=== PATIENT | male | born 1955 | race Hispanic/Latino ===

== ENCOUNTER 2020-12-03 09:23 | Emergency (ER) | payer MEDICARE ==
--- OUTSIDE RECORDS SUMMARY | 2020-12-03 09:25 | XMS REPORT | Continuity of Care Document ---
:1955 Author Organization [facility] t Address [address] [place] [address] Care Team Providers Name Role Phone TAWANNA CABRAL M.D. Attending Clinician Unavailable Problems Condition Condition Condition Status Onset Resolution Last Treating Co mments Source Name Details Category Date Date Treatment Clinician Date Crushing Crushing Problem Active Unive rs injury of injury of ity of left left [place] middle middle Physici finger finger ans Allergies, Adverse Reactions, Alerts Allergy Allergy Status Severity Reaction(s) Onset Inactive Treating Comm ents Source Name Type Date Date Clinician Penicill drug Active [facility] ins allergy ity of [place] Phys[facility] ans Medications Ordered Filled Start Stop Current Ordering Indication Dosage Frequency Signature Comments Components Source Medication Medication Date Date Medication? Clinician (SIG) Name Name Lisinopril Lisinopril Yes [facility] vers TABS TABS [facility] [place] [facility] ans Procedures This patient has no known procedures. Encounters Start End Encounter Admission Attending Care Care Encounter Source Date/Time Date/Time Type Type Clinicians Facility Department ID 2019-01-29 2019-01-29 [facility] [id number] [facility] 11:30:00 11:30:00 t; TAWANNA CABRAL M.D. i Emir M.D. [place] [facility] ans 2019-01-27 2019-01-27 [facility] [id number] Univers 08:30:00 08:30:00 t; TAWANNA CABRAL M.D. i Emir M.D. [place] [facility] ans Results Test Description Test Time Test Comments Results Result Sourc e Comments [U] XRAY 2019-01-29 Images [facility] FINGER(S) - 2 VWS 10:56:00 acquired[place] MIN. LEFT [id number] reported on Physicia ns this accession number.
[2020-12-03] MEDS ORDERED: BUPIVACAINE 0.5% PF 10 ML VIAL ONE (09:54)
[2020-12-03] MEDS ORDERED: CLINDAMYCIN IV 150 MG/ML (4 mL) VIAL ONE (10:08)
--- NOTE | 2020-12-03 10:08 | ER ---
Nurse's Notes [facility] Name: Chance Cooper Age: 65 yrs Sex: Male : 1955 Arrival Date: 12/03/2020 Time: 09:26 Bed 5 Private MD: Diagnosis: Cellulitis of right finger Presentation: 12/03 09:47 Chief complaint: Patient states: burned his right index finger while BBQing 2 weeks ago iw , having a lot of pain. Coronavirus screen: At this time, the client does not indicate any symptoms associated with coronavirus-19. Ebola Screen: Patient negative for fever greater than or equal to 101.5 degrees Fahrenheit, and additional compatible Ebola Virus Disease symptoms Patient denies exposure to infectious person. Patient denies travel to an Ebola-affected area in the 21 days before illness onset. No symptoms or risks identified at this time. Initial Sepsis Screen: Does the patient meet any 2 criteria? No. Patient's initial sepsis screen is negative. Does the patient have a suspected source of infection? No. Patient's initial sepsis screen is negative. Risk Assessment: Do you want to hurt yourself or someone else? Patient reports no desire to harm self or others. Onset of symptoms was November 18, 2020. 09:47 Method Of Arrival: Ambulatory iw 09:47 Acuity: MIGUEL 3 iw Historical: - Allergies: 09:51 PENICILLINS; iw - Home Meds: 09:51 None [Active]; iw - PMHx: 09:51 Hypertension; iw - PSHx: 09:51 finger; iw - Immunization history:: Adult Immunizations not up to date. - Social history:: Smoking status: . Screenin:00 Abuse screen: Denies threats or abuse. Denies injuries from another. Nutritional jl7 screening: No deficits noted. Tuberculosis screening: No symptoms or risk factors identified. Fall Risk None identified. Vital Signs: 09:47 BP 168 / 77; Pulse 73; Resp 16; Temp 98.2; Pulse Ox 99% on R/A; iw ED Course: Patient arrived in ED. ag5 09:32 Ruiz Rizo PA is PHCP. jmm 09:32 Oni Barahona MD is Attending Physician. jm 09:34 Ash Mayorga, LUZ MARIA is Primary Nurse. bp 09:51 Triage completed. iw 09:52 Arm band placed on. iw 10:00 Patient has correct armband on for positive identification. Bed in low position. Call jl7 light in reach. Side rails up X 1. 10:06 Librado Martinez MD is Referral Physician. [facility] 10:17 No provider procedures requiring assistance completed. Patient did not have IV access jl7 during this emergency room visit. Administered Medications: 09:55 Drug: Clindamycin 600 mg Route: IM; Site: left gluteus; bp 10:05 Follow up: Response: No adverse reaction bp 10:00 Drug: Bactrim (160 mg-800 mg (DS) 1 tablet Route: PO; bp 10:05 Follow up: Response: No adverse reaction bp 10:00 CANCELLED (Patient Refused): morphine 4 mg IM once; RASS on ADMIN: Combtv4, Very jmm Agttd3, Agttd2, Rstlss1, AlertClm0, Drwsy-1, Lt Sdtn-2, Mod Sdtn-3, Dp Sdtn-4, UnArsble-5 10:00 Drug: [place] 10 mg-325 mg 1 tabs Route: PO; bp 10:05 Follow up: Response: No adverse reaction; Pain is decreased bp 10:04 Not Given (Patient Refused): Zofran (Ondansetron) 4 mg PO once bp Outcome: 10:07 Discharge ordered by . [facility] 10:17 Discharged to home ambulatory. jl7 10:17 Condition: stable 10:17 Discharge instructions given to patient, Instructed on discharge instructions, follow up and referral plans. medication usage, Demonstrated understanding of instructions, follow-up care, medications, Prescriptions given X 3. 10:17 Patient left the ED. jl7 Signatures: Ruiz Rizo PA PA Isabel Holland, RN RN iw Agapito Lewis RN RN jl7 Ash Mayorga, RN RN Jasson Reid ag5
--- NOTE | 2020-12-03 10:08 | EDPHYS ---
Physician Documentation [facility] Name: Chance Cooper Age: 65 yrs Sex: Male : 1955 Arrival Date: 12/03/2020 Time: 09:26 Bed 5 Private MD: ED Physician Oni Barahona HPI: 12/03 09:59 This 65 yrs old Male presents to ER via Ambulatory with complaints of Wound jmm Check. 09:59 Patient presents to ED for recheck of: cellulitis. The affected area is on the right jmm hand. The patient or guardian reports injury, pain. Onset: The symptoms/episode began/occurred gradually, 2 week(s) ago. Modifying factors: The symptoms are alleviated by nothing, the symptoms are aggravated by nothing. 10:15 This is a 65 year old male with a history of htn that presents to the ED with jmm complaints of right 2nd finger swelling. Patient states he burned his finger 2 weeks ago with swelling beginning 1 week ago. Denies fever or chills. . Historical: - Allergies: 09:51 PENICILLINS; iw - Home Meds: 09:51 None [Active]; iw - PMHx: 09:51 Hypertension; iw - PSHx: 09:51 finger; iw - Immunization history:: Adult Immunizations not up to date. - Social history:: Smoking status: . ROS: 10:15 Constitutional: Negative for fever, chills, and weight loss, Cardiovascular: Negative jmm for chest pain, palpitations, and edema, Respiratory: Negative for shortness of breath, cough, wheezing, and pleuritic chest pain. 10:15 MS/extremity: Positive for swelling. 10:15 Skin: Positive for erythema, swelling. 10:15 All other systems are negative. Exam: 10:15 Constitutional: This is a well developed, well nourished patient who is awake, alert, jmm and in no acute distress. Head/Face: atraumatic. Eyes: EOMI, no conjunctival erythema appreciated ENT: Moist Mucus Membranes Neck: Trachea midline, Supple Chest/axilla: Normal chest wall appearance and motion. Cardiovascular: Regular rate and rhythm. No edema appreciated Respiratory: Normal respirations, no respiratory distress appreciated Abdomen/GI: Non distended, soft Back: Normal ROM Skin: General appearance color normal MS/ Extremity: Moves all extremities, no obvious deformities appreciated, no edema noted to the lower extremities Neuro: Awake and alert, normal gait Psych: Behavior is normal, Mood is normal, Patient is cooperative and pleasant 10:15 Musculoskeletal/extremity: circumferential swelling noted to the right 2nd finger with erythema and induration. patient is able to full extend without pain. 10:15 Skin: erythema noted to the right 2nd finger. indurated, non fluctuant. 10:15 Neuro: Orientation: is normal, Mentation: is normal, Memory: is normal. 10:15 Psych: Behavior/mood is pleasant, cooperative. Vital Signs: 09:47 BP 168 / 77; Pulse 73; Resp 16; Temp 98.2; Pulse Ox 99% on R/A; iw MDM: 09:34 Patient medically screened. bear 10:04 Data reviewed: vital signs, nurses notes. Counseling: I had a detailed discussion with minoo the patient and/or guardian regarding: the historical points, exam findings, and any diagnostic results supporting the discharge/admit diagnosis, the need for outpatient follow up, to return to the emergency department if symptoms worsen or persist or if there are any questions or concerns that arise at home. ED course: PE not consistent with flexor tenosynovitis. NO pain on extension. Non fluctuant. I do not suspect felon or paronychia. Patient advised to follow up with hand and otherwise given strict return precautions. Patient understood and agrees with the plan of care. . Administered Medications: 09:55 Drug: Clindamycin 600 mg Route: IM; Site: left gluteus; bp 10:05 Follow up: Response: No adverse reaction bp 10:00 Drug: Bactrim (160 mg-800 mg (DS) 1 tablet Route: PO; bp 10:05 Follow up: Response: No adverse reaction bp 10:00 CANCELLED (Patient Refused): morphine 4 mg IM once; RASS on ADMIN: Combtv4, Very jmm Agttd3, Agttd2, Rstlss1, AlertClm0, Drwsy-1, Lt Sdtn-2, Mod Sdtn-3, Dp Sdtn-4, UnArsble-5 10:00 Drug: [place] 10 mg-325 mg 1 tabs Route: PO; bp 10:05 Follow up: Response: No adverse reaction; Pain is decreased bp 10:04 Not Given (Patient Refused): Zofran (Ondansetron) 4 mg PO once bp Disposition: 10:56 Co-signature as Attending Physician, Oni Barahona MD. rn Disposition: 12/03/20 10:07 Discharged to Home. Impression: Cellulitis of right finger. - Condition is Stable. - Discharge Instructions: Cellulitis, Adult. - Prescriptions for Clindamycin HCl 300 mg Oral Capsule - take 1 capsule by ORAL route every 6 hours for 10 days; 40 capsule. Ultracet 37.5- 325 mg Oral Tablet - take 1 tablet by ORAL route every 6 hours - for up to 5 days; do not exceed 8 tablets per day.; 20 tablet. Bactrim DS 800- 160 mg Oral Tablet - take 1 tablet by ORAL route every 12 hours for 10 days; 20 tablet. - Medication Reconciliation Form, Thank You Letter, Antibiotic Education, Prescription Opioid Use form. - Follow up: Librado Martinez MD; When: 2 - 3 days; Reason: Recheck today's complaints, Continuance of care, Re-evaluation by your physician. Signatures: Ruiz Rizo PA PA jmm Williams, Irene, Oni Moscoso RN, MD MD rn Leal, Jahala, RN RN jl7 Ash Mayorga RN RN bp Corrections: (The following items were deleted from the chart) 10:00 09:53 morphine 4 mg IM once; RASS on ADMIN: Combtv4, Very Agttd3, Agttd2, Rstlss1, jmm AlertClm0, Drwsy-1, Lt Sdtn-2, Mod Sdtn-3, Dp Sdtn-4, UnArsble-5 ordered. [facility] 10:17 10:07 12/03/2020 10:07 Discharged to Home. Impression: Cellulitis of right finger. jl7 Condition is Stable. Forms are Medication Reconciliation Form, Thank You Letter, Antibiotic Education, Prescription Opioid Use. Follow up: Librado Martinez; When: 2 - 3 days; Reason: Recheck today's complaints, Continuance of care, Re-evaluation by your physician. [facility]
[2020-12-03] MEDS ORDERED: SMZ./TMP. 800/160 MG TABLET ONE (10:18)
[2020-12-03] MEDS ORDERED: HYDROCODONE/APAP 10/325 TAB ONE (10:18)
[2020-12-03 10:22] VITALS: BP 168/77; TEMP 98.2; O2SAT 99
== END 2020-12-03 10:17 | disposition home or self-care (01) ==
LOC: ER 09:23
DX: L03.011 Cellulitis of right finger (principal); I10 Essential (primary) hypertension; Z88.0 Allergy status to penicillin
CPT/HCPCS: 96372; 99283; S0077

== ENCOUNTER 2020-12-08 14:02 | Inpatient (IN) | payer MEDICARE ==
--- NOTE | 2020-12-08 15:34 | ER ---
Nurse's Notes [facility] Name: Chance Cooper Age: 65 yrs Sex: Male : 1955 Arrival Date: 12/08/2020 Time: 14:05 Bed 15 Private MD: Diagnosis: Osteomyelitis-second digit right hand;second digit, right hand tuft fracture - pathologic Presentation: 12/08 14:27 Chief complaint: Patient states: was seen here last Saturday for infection in right iw index finger, put on antibiotics, swelling has gone down some but still having a lot of pain. Coronavirus screen: At this time, the client does not indicate any symptoms associated with coronavirus-19. Ebola Screen: Patient negative for fever greater than or equal to 101.5 degrees Fahrenheit, and additional compatible Ebola Virus Disease symptoms Patient denies exposure to infectious person. Patient denies travel to an Ebola-affected area in the 21 days before illness onset. No symptoms or risks identified at this time. Initial Sepsis Screen: Does the patient meet any 2 criteria? No. Patient's initial sepsis screen is negative. Does the patient have a suspected source of infection? No. Patient's initial sepsis screen is negative. Risk Assessment: Do you want to hurt yourself or someone else? Patient reports no desire to harm self or others. Onset of symptoms was November 2020. 14:27 Method Of Arrival: Ambulatory iw 14:27 Acuity: MIGUEL 3 iw Historical: - Allergies: 14:29 PENICILLINS; iw - PMHx: 14:29 Hypertension; iw - PSHx: 14:29 finger; iw - Immunization history:: Adult Immunizations unknown. - Social history:: Smoking status: unknown. Screenin:34 Abuse screen: Denies threats or abuse. Nutritional screening: No deficits noted. jd3 Tuberculosis screening: No symptoms or risk factors identified. Fall Risk Ambulatory Aid- None/Bed Rest/Nurse Assist (0 pts). Gait- Normal/Bed Rest/Wheelchair (0 pts) Mental Status- Oriented to own ability (0 pts). Total Johnston Fall Scale indicates No Risk (0-24 pts). Assessment: 15:33 General: Appears in no apparent distress. comfortable, Behavior is calm, cooperative, jd3 appropriate for age. Pain: Complains of pain in right index finger Quality of pain is described as aching. Neuro: Level of Consciousness is awake, alert, obeys commands, Oriented to person, place, time, situation. Cardiovascular: Denies chest pain, Capillary refill < 3 seconds Patient's skin is warm and dry. Respiratory: Airway is patent Respiratory effort is even, unlabored, Respiratory pattern is regular, symmetrical, Denies cough, shortness of breath. GI: No signs and/or symptoms were reported involving the gastrointestinal system. : No signs and/or symptoms were reported regarding the genitourinary system. EENT: No signs and/or symptoms were reported regarding the EENT system. Derm: Skin is intact, Skin is dry, Skin is normal, Skin temperature is warm Wound noted right index finger. Musculoskeletal: Circulation, motion, and sensation intact. Range of motion: intact in all extremities. 15:55 Reassessment: provider at bedside discussing plan of care. jd3 17:46 Reassessment: Patient appears in no apparent distress at this time. Patient and/or jd3 family updated on plan of care and expected duration. Pain level reassessed. Patient is alert, oriented x 3, equal unlabored respirations, skin warm/dry/pink. awaiting admission. 19:28 Reassessment: Patient and/or family updated on plan of care and expected duration. Pain cr4 level reassessed. Patient is alert, oriented x 3, equal unlabored respirations, skin warm/dry/pink. updated on admission to 2nd floor rm 222.. Vital Signs: 14:27 BP 171 / 76; Pulse 70; Resp 16; Temp 98.4; Pulse Ox 100% on R/A; Weight 81.19 kg; iw Height 5 ft. 5 in. (165.10 cm); Pain 8/10; 16:18 BP 190 / 63; Pulse 74; Resp 17 S; Pulse Ox 100% on R/A; jd3 16:37 BP 137 / 70; Pulse 75; Resp 18 S; Pulse Ox 100% on R/A; jd3 17:35 BP 158 / 76; Pulse 67; Resp 17; Pulse Ox 98% ; rb3 18:47 BP 168 / 73; Pulse 63; Resp 17 S; Pulse Ox 97% on R/A; jd3 19:28 BP 149 / 77; Pulse 67; Resp 18; Pulse Ox 97% ; cr4 14:27 Body Mass Index 29.79 (81.19 kg, 165.10 cm) ED Course: 14:05 Patient arrived in ED. as 14:12 [facility]o Richard [facility]C [facility] kb 14:12 Ramy Grande MD is Attending Physician. kb 14:29 Triage completed. iw 14:45 Amrit Murray RN is Primary Nurse. jd3 14:46 Arm band placed on. jd3 15:24 Hand Right 3 View XRAY In Process Unspecified. EDMS 15:35 Patient has correct armband on for positive identification. Bed in low position. Call jd3 light in reach. Side rails up X 1. Pulse ox on. NIBP on. 15:40 Chin Mendez MD is Referral Physician. kb 15:40 Librado Martinez MD is Referral Physician. kb 15:59 Natanael Richard is Hospitalizing Provider. kb 16:10 Initial lab(s) drawn, by me, sent to lab. kj1 16:10 Inserted saline lock: 20 gauge in left antecubital area, using aseptic technique. Blood kj1 collected. 16:18 EKG done, by ED staff, reviewed by Glo MONIQUE. jd3 16:23 Chest Single View XRAY In Process Unspecified. EDMS 20:11 No provider procedures requiring assistance completed. Patient admitted, IV remains in cr4 place. Administered Medications: 16:37 Drug: vancoMYCIN 1 grams Route: IVPB; Infused Over: 2 hrs; Site: left antecubital; jd3 18:30 Follow up: Response: No adverse reaction; IV Status: Completed infusion; IV Intake: jd3 250ml Intake: 18:30 IV: 250ml; Total: 250ml. jd3 Outcome: 15:34 Discharge ordered by . kb 16:06 Decision to Hospitalize by Provider. kb 20:11 Admitted to Med/surg accompanied by nurse, via wheelchair, room 222, with chart. cr4 20:11 Admitted to Med/surg Report called to Clara 20:11 Condition: good 20:11 Discharge instructions given to patient, Instructed on the need for admit, Demonstrated understanding of 20:14 Patient left the ED. cr4 Signatures: Dispatcher [employer] EDMS Glo Richard FNP-C FNP-Ckb Martinez, Amelia as Isabel Dickinson, RN RN iw Lluvia Ashford RN RN cr4 Amrit Murray RN RN jd3 Jannette Richard kj1 Amarilis Conway, RN RN rb3 Corrections: (The following items were deleted from the chart) 14:29 14:27 Pulse 70bpm; Resp 16bpm; Pulse Ox 100% RA; Temp 98.4F; 81.19 kg; Height 5 ft. 5 iw in.; BMI: 29.7; Pain 8/10; iw 19:05 16:10 Inserted saline lock: 20 gauge in right antecubital area, using aseptic kj1 technique. Blood collected. kj1 19:05 16:10 Initial lab(s) drawn, by me, sent to lab. kj1 kj1 19:06 16:10 Inserted saline lock: 20 gauge in left Blood collected. kj1 kj1
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
--- NOTE | 2020-12-08 15:37 | RAD REPORT ---
EXAM DESCRIPTION: RAD - Hand Right 3 View - 12/08/2020 3:24 pm CLINICAL HISTORY: PAIN, patient indicates treatment for infection second digit COMPARISON: No comparisonsNone. FINDINGS: There is fracture involving the tuft of the second distal phalanx. There is partial bone r esorption of the tuft. No air or foreign body in the soft tissues. Soft tissue swelling is present. N o trauma history detailed. Based on imaging in available history osteomyelitis and pathologic fractur e of the distal phalanx is evident. It is possible the patient had a fracture and subsequent soft tis gretchen infection. No other acute or destructive bone process seen. IP joint degenerative changes are present. The third MCP joint shows joint space narrowing. Trapezium-first metacarpal degenerative changes minimal. IMPRESSION: Fracture and partial bone resorption of the tuft second distal phalanx. Soft tissue swelling without air or foreign body in the second digit. No trauma history was noted. Second digit findings are consistent with bone destructive osteomyelitis and pathologic fracture.
[2020-12-08] MEDS ORDERED: VANCOMYCIN/NS 1 gm 1 GM/250 ML BAG IVPB ONE (16:30)
[2020-12-08 16:32] LABS: Absolute Lymphocytes (CBC) 2.3 K/uL (0.7-4.9); Basophils % 0.7 % (0-1.3); Hematocrit 45.7 % (39.6-49.0); Lymphocytes % 32.1 % (15.3-44.8); MPV 9.6 fL (7.6-11.3)
[2020-12-08 16:38] LABS: BUN Blood Urea Nitrogen 8 mg/dL (7-18); Bicarbonate 24 mmol/L (21-32); Glucose Level 90 mg/dL (74-106); Potassium 4.1 mmol/L (3.5-5.1); Sodium Level 139 mmol/L (136-145)
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
--- NOTE | 2020-12-08 17:36 | RAD REPORT ---
EXAM DESCRIPTION: RAD - Chest Single View - 12/08/2020 4:23 pm CLINICAL HISTORY: pre-op, pending right hand fracture repair/debridement COMPARISON: None TECHNIQUE: AP portable chest image was obtained 12/08/2020 4:23 pm . FINDINGS: No focal mass or consolidation. No significant failure or volume overload. Interstitial ma rkings are mildly prominent probably baseline. Heart and vasculature are normal. No measurable pleura l effusion and no pneumothorax. No acute bony abnormality seen. No acute aortic findings suspected. IMPRESSION: Mildly prominent interstitial pattern probably baseline. Acute cardiopulmonary process i s not suspected.
[2020-12-08] MEDS ORDERED: ACETAMINOPHEN 500 MG TAB PO PRN (20:59)
[2020-12-08] MEDS ORDERED: ONDANSETRON 4 MG/2 ML VIAL IV PRN (20:59)
[2020-12-08] MEDS ORDERED: VANCOMYCIN 500 MG in NA CHLORIDE 0.9% 100 ML IVPB ONE (21:15)
[2020-12-08] MEDS: Levofloxacin 750mg IV 750 MG/150 ML BAG IV SCH (21:30)
[2020-12-08] MEDS: NA CHLORIDE 0.9% 1,000 ML IV SCH (21:30)
[2020-12-08] MEDS ORDERED: NA CHLORIDE 0.9% 100 ML ONE (21:51)
[2020-12-08] MEDS ORDERED: VANCOMYCIN 500 MG/VIAL ONE (21:51)
[2020-12-08 22:17] VITALS: BMI 28.8
[2020-12-09 05:53] LABS: Absolute Lymphocytes (CBC) 1.7 K/uL (0.7-4.9); Basophils % 0.7 % (0-1.3); Hematocrit 41.7 % (39.6-49.0); MPV 9.2 fL (7.6-11.3); RBC Red Blood Cell Count 4.29 M/uL (4.33-5.43)
[2020-12-09 06:05] LABS: BUN Blood Urea Nitrogen 8 mg/dL (7-18); Bicarbonate 24 mmol/L (21-32); Glucose Level 94 mg/dL (74-106); Potassium 4.1 mmol/L (3.5-5.1); Sodium Level 140 mmol/L (136-145)
[2020-12-09 06:13] LABS: Protime INR 1.3
[2020-12-09] MEDS ORDERED: Ringers Lactate 1,000 ML IV ONE (08:41)
[2020-12-09] MEDS ORDERED: VANCOMYCIN/NS 1 gm 1 GM/250 ML BAG IVPB SCH (09:00)
[2020-12-09] MEDS: VANCOMYCIN 1.5 GM in NA CHLORIDE 0.9% 500 ML IVPB SCH ×2 (09:00→20:35)
[2020-12-09] MEDS ORDERED: LIDOCAINE 1% MPF 30 ML VIAL ONE (09:17)
--- NOTE | 2020-12-09 10:56 | OP ---
Surgeon: Librado Martinez MD Preoperative Diagnosis: Osteomyelitis of the right index finger. Postoperative Diagnosis: Osteomyelitis of the right index finger. Procedure: Debridement of skin, soft tissue, and bone. Anesthesia: general Procedure In Detail: After satisfactory induction of block, the right hand was prepped with Betadine scrub and Betadine paint, dry sterile drapes were applied in the usual manner. A 10 blade was used to make the incision with dry gangrene of the tip. A periosteal elevator was used to remove nail plate and then taken down to the bone that was necrotic was curettage. The portion of bone was sent to Pathology as well as cultures. Cultures were taken of soft tissue drainage. After curetting and jet lavaging, hemostasis was obtained and dressed it with 2 inch Laron. The patient tolerated procedure well and returned to Recovery. ALLO/BAKARI Voice ID: [id number] Report ID: [id number] AISHWARYA
[2020-12-09 12:35] LABS: Urine Appearance CLOUDY; Urine Bilirubin NEGATIVE (NEG); Urine Blood NEGATIVE (NEG); Urine Color YELLOW; Urine Glucose NEGATIVE (NEG); Urine Protein NEGATIVE (NEG); Urine Specific Gravity 1.015 (1.005-1.030); Urine pH 7.5 (5.0-7.0)
[2020-12-09 12:36] LABS: Urine Microscopic Reflex NO UMIC
[2020-12-09] MEDS ORDERED: CODEINE 30MG/APAP 300MG TAB PO PRN (14:43)
--- NOTE | 2020-12-09 17:34 | P.PN ---
Subjective Date of Service: 12/09/20 Chief Complaint: Nonhealing wound and swelling of right index finger. Patient underwent incision and debridement of necrotic bone in his right index finger by hand surgeon. He is doing well after the surgery. Physical Examination - Vital Signs Temperature: 98.7 F Blood Pressure: 183/84 Pulse: 64 Respirations: 16 Pulse Ox (%): 98 - Physical Exam General: Alert, In no apparent distress, Oriented x3 Neck: Supple, JVD not distended Respiratory: Clear to auscultation bilaterally, Normal air movement Cardiovascular: No edema, Regular rate/rhythm, Normal S1 S2 Gastrointestinal: Soft and benign, Non-distended, No tenderness Musculoskeletal: No swelling, No erythema, Other (Right Index finger incision wound dressed.) Integumentary: No rashes, Erythema (Erythema right index finger.) Neurological: Normal speech, Normal strength at 5/5 x4 extr, Cranial nerves 3-12 intact Assessment And Plan - Current Problems (Diagnosis) (1) Cellulitis of finger of right hand Current Visit: Yes Status: Acute (2) Acute osteomyelitis of phalanx of right hand Current Visit: Yes Status: Acute (3) Phalanx, distal fracture of finger Current Visit: Yes Status: Acute - Plan Continue IV Levaquin and IV vancomycin. Anaphylactic allergic respond to penicillin acknowledged. Follow blood culture, deep tissue wound culture. Hand surgeon-Dr. Martinez is following and planning another debridement and possibly distal phalanx amputation on Saturday Pain management as needed.
[2020-12-09] MEDS ORDERED: HYDRALAZINE HCL 20 MG/ML VIAL IV PRN (21:15)
[2020-12-09] MEDS: Levofloxacin 750mg IV 750 MG/150 ML BAG IV SCH (21:54)
[2020-12-10] MEDS: NA CHLORIDE 0.9% 1,000 ML IV SCH ×2 (04:22→12:59)
[2020-12-10] MEDS: AMLODIPINE 10 MG TAB PO SCH (09:00)
[2020-12-10] MEDS: VANCOMYCIN 1.75 GM in NA CHLORIDE 0.9% 500 ML IVPB SCH ×2 (10:22→22:38)
--- NOTE | 2020-12-10 12:07 | P.PN ---
Subjective Date of Service: 12/10/20 Chief Complaint: Nonhealing wound and swelling of right index finger. Patient underwent incision and debridement of necrotic bone in his right index finger by hand surgeon on 12/09/2020. He is doing well after the surgery. He has no complain. He has been afebrile. His blood pressure has been elevated. Physical Examination - Vital Signs Temperature: 97.5 F Blood Pressure: 129/74 Pulse: 70 Respirations: 15 Pulse Ox (%): 98 - Physical Exam General: Alert, In no apparent distress, Oriented x3 Neck: JVD not distended Respiratory: Clear to auscultation bilaterally, Normal air movement Cardiovascular: No edema, Regular rate/rhythm, Normal S1 S2 Gastrointestinal: Soft and benign, Non-distended, No tenderness Musculoskeletal: No swelling, Other (Open wound -right index finger in dressing. Dressing is not soaked.) Integumentary: No rashes Neurological: Normal strength at 5/5 x4 extr, Cranial nerves 3-12 intact Assessment And Plan - Current Problems (Diagnosis) (1) Cellulitis of finger of right hand Current Visit: Yes Status: Acute (2) Acute osteomyelitis of phalanx of right hand Current Visit: Yes Status: Acute (3) Phalanx, distal fracture of finger Current Visit: Yes Status: Acute - Plan Continue IV Levaquin and IV vancomycin. Anaphylactic allergic respond to penicillin acknowledged. Follow blood culture, follow deep tissue wound culture. Hand surgeon-Dr. Martinez is following and planning another debridement and p ossibly distal phalanx amputation on Saturday. PICC line requested for prolonged IV antibiotics Pain management as needed.
--- NOTE | 2020-12-10 13:01 | RAD REPORT ---
EXAM DESCRIPTION: RAD - Chest Single View - 12/10/2020 12:55 pm CLINICAL HISTORY: picc line placement COMPARISON: Chest Single View dated 12/08/2020 FINDINGS: Portable chest was obtained following placement of a left upper extremity PICC line. The c atheter tip projects over the SVC.
[2020-12-10] MEDS: Levofloxacin 750mg IV 750 MG/150 ML BAG IV SCH (21:03)
--- NOTE | 2020-12-11 07:58 | EKG ---
Test Date: 2020-12-08 Test Time: 16:14:12 Bung Remover: KRISHNA MEASUREMENT RESULTS: Intervals: Rate: 76 DE: 180 QRSD: 86 QT: 410 QTc: 461 [place]: P: 49 DE: 180 QRS: 132 T: 21 INTERPRETIVE STATEMENTS: Sinus rhythm with premature atrial complexes Right axis deviation Abnormal ECG No previous ECG available for comparison Electronically Signed On 12-11-20 07:53:54 RESPIRATORY CARE INSTRUCTOR by Aris Garber
[2020-12-11] MEDS: NA CHLORIDE 0.9% 1,000 ML IV SCH (08:59)
[2020-12-11] MEDS: AMLODIPINE 10 MG TAB PO SCH (09:00)
[2020-12-11] MEDS: VANCOMYCIN 1.75 GM in NA CHLORIDE 0.9% 500 ML IVPB SCH ×2 (11:00→22:18)
--- NOTE | 2020-12-11 12:36 | P.PN ---
Subjective Date of Service: 12/11/20 Chief Complaint: Nonhealing wound and swelling of right index finger. Patient underwent incision and debridement of necrotic bone in his right index finger by hand surgeon on 12/09/2020. He has no complain today. He has been afebrile. His blood pressure remain elevated. Physical Examination - Vital Signs Temperature: 98.0 F Blood Pressure: 167/73 Pulse: 62 Respirations: 16 Pulse Ox (%): 98 - Physical Exam General: Alert, In no apparent distress, Oriented x3 Neck: JVD not distended Respiratory: Clear to auscultation bilaterally, Normal air movement Cardiovascular: No edema, Regular rate/rhythm, Normal S1 S2 Gastrointestinal: Soft and benign, Non-distended, No tenderness Integumentary: No rashes Neurological: Normal strength at 5/5 x4 extr Assessment And Plan - Current Problems (Diagnosis) (1) Cellulitis of finger of right hand Current Visit: Yes Status: Acute (2) Acute osteomyelitis of phalanx of right hand Current Visit: Yes Status: Acute (3) Phalanx, distal fracture of finger Current Visit: Yes Status: Acute - Plan Continue current IV antibiotics Anaphylactic allergic respond to penicillin acknowledged. PICC line placed for prolonged outpatient antibiotics Blood cultures: No growth to date. Deep tissue wound culture: No organism identified on Gram stain. Culture is pending. Hand surgeon-Dr. Martinez is following and planning another debridement and possibly distal phalanx fracture fragment amputation on Saturday. Pain management as needed. Continue amlodipine for hypertension.
[2020-12-11] MEDS: Levofloxacin 750mg IV 750 MG/150 ML BAG IV SCH (21:05)
[2020-12-12] MEDS: AMLODIPINE 10 MG TAB PO SCH (10:25)
[2020-12-12] MEDS: NA CHLORIDE 0.9% 1,000 ML IV SCH (10:25)
[2020-12-12] MEDS: VANCOMYCIN 1.75 GM in NA CHLORIDE 0.9% 500 ML IVPB SCH ×2 (11:32→22:37)
--- NOTE | 2020-12-12 14:24 | P.PN ---
Subjective Date of Service: 12/12/20 Chief Complaint: Nonhealing wound and swelling of right index finger. Patient underwent incision and debridement of necrotic bone in his right index finger by hand surgeon on 12/09/2020. He has no complain. Physical Examination - Vital Signs Temperature: 98.2 F Blood Pressure: 131/64 Pulse: 62 Respirations: 18 Pulse Ox (%): 98 - Physical Exam General: Alert, In no apparent distress Respiratory: Clear to auscultation bilaterally Cardiovascular: No edema, Regular rate/rhythm, Normal S1 S2 Gastrointestinal: Soft and benign, Non-distended, No tenderness Musculoskeletal: Other (Right index finger in dressing.) Integumentary: No rashes Neurological: Normal speech, Normal strength at 5/5 x4 extr Assessment And Plan - Current Problems (Diagnosis) (1) Cellulitis of finger of right hand Current Visit: Yes Status: Acute (2) Acute osteomyelitis of phalanx of right hand Current Visit: Yes Status: Acute (3) Phalanx, distal fracture of finger Current Visit: Yes Status: Acute - Plan Continue current IV antibiotics PICC line placed for prolonged outpatient antibiotics Blood cultures: No growth to date. Deep tissue wound culture: Staph aures. Sensitive to Levaquin. Hand surgeon-Dr. Martinez is following and planning another debridement and possibly distal phalanx fracture fragment amputation this week. Patient requested for a repeat x-ray of the finger before another debridement. Pain management as needed. Blood pressure readings within acceptable range. Continue amlodipine for hypertension.
--- NOTE | 2020-12-12 17:16 | RAD REPORT ---
EXAM DESCRIPTION: RAD - Hand Right 2 View - 12/12/2020 4:44 pm CLINICAL HISTORY: Right index finger fracture COMPARISON: Hand Right 3 View dated 12/08/2020 FINDINGS: Significant bony destruction is seen involving the distal phalanx of the second finger wit h surrounding soft tissue swelling. The findings appear progressive since the comparative study. No n ew fracture or dislocation seen.
[2020-12-12] MEDS: Levofloxacin 750mg IV 750 MG/150 ML BAG IV SCH (21:00)
[2020-12-13] MEDS: NA CHLORIDE 0.9% 1,000 ML IV SCH ×2 (05:45→22:57)
[2020-12-13 06:36] LABS: Absolute Lymphocytes (CBC) 2.2 K/uL (0.7-4.9); Basophils % 0.7 % (0-1.3); Hematocrit 44.8 % (39.6-49.0); Lymphocytes % 38.7 % (15.3-44.8); MPV 9.9 fL (7.6-11.3); RBC Red Blood Cell Count 4.57 M/uL (4.33-5.43)
[2020-12-13 06:51] LABS: BUN Blood Urea Nitrogen 5 mg/dL (7-18); Bicarbonate 25 mmol/L (21-32); Glucose Level 92 mg/dL (74-106); Potassium 4.1 mmol/L (3.5-5.1); Sodium Level 140 mmol/L (136-145)
[2020-12-13] MEDS: AMLODIPINE 10 MG TAB PO SCH (09:00)
[2020-12-13] MEDS: VANCOMYCIN 1.75 GM in NA CHLORIDE 0.9% 500 ML IVPB SCH (11:00)
--- NOTE | 2020-12-13 17:48 | P.PN ---
Subjective Date of Service: 12/13/20 Chief Complaint: Nonhealing wound and swelling of right index finger. Subjective: No new changes (doing well, without complaints) Review of Systems 10-point ROS is otherwise unremarkable Physical Examination - Vital Signs Temperature: 97 F Blood Pressure: 142/67 Pulse: 66 Respirations: 18 Pulse Ox (%): 99 Assessment & Plan Physician Review Additional Text: Physical Exam General: Alert, In no apparent distress Respiratory: Clear to auscultation bilaterally Cardiovascular: No edema, Regular rate/rhythm, Normal S1 S2 Gastrointestinal: Soft and benign, Non-distended, No tenderness Musculoskeletal: Right index finger in dressing: c/d/i Problem List Cellulitis of finger of right hand 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 Deep tissue wound culture: Staph aures. Sensitive to Levaquin. Hand surgeon-Dr. Martinez is following and planning another debridement and possibly distal phalanx fracture fragment amputation this week. - likely Pain management as needed. Continue amlodipine for hypertension. ID consulted Dispo: anticipate dc home after surgery later this week. Time Spent Managing Pts Care (In Minutes): 35
[2020-12-13] MEDS: Levofloxacin 750mg IV 750 MG/150 ML BAG IV SCH (21:34)
[2020-12-13] MEDS: VANCOMYCIN 2 GM in NA CHLORIDE 0.9% 500 ML IVPB SCH (22:58)
[2020-12-14] MEDS: AMLODIPINE 10 MG TAB PO SCH (09:10)
[2020-12-14] MEDS: VANCOMYCIN 2 GM in NA CHLORIDE 0.9% 500 ML IVPB SCH ×2 (11:00→23:03)
--- NOTE | 2020-12-14 12:13 | PN ---
Planned surgery tomorrow. N.p.o. at midnight. We will debride and close his finger . LALO/RUTHANNL Voice ID: [id number] Report ID: [id number]
--- NOTE | 2020-12-14 16:51 | P.PN ---
Subjective Date of Service: 12/14/20 Chief Complaint: Nonhealing wound and swelling of right index finger. Subjective: No new changes (doing well, pain is ok, no drainage at this time. 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 Deep tissue wound culture: Staph aures. Sensitive to Levaquin. Hand surgeon-Dr. Martinez is following and planning another debridement and possibly distal phalanx fracture fragment amputation this week. - tomorrow Pain management as needed. Continue amlodipine for hypertension. ID consulted Dispo: anticipate dc home after surgery later this week. Time Spent Managing Pts Care (In Minutes): 35
[2020-12-14] MEDS: Levofloxacin 750mg IV 750 MG/150 ML BAG IV SCH (22:02)
[2020-12-15] MEDS: NA CHLORIDE 0.9% 1,000 ML IV SCH ×2 (03:11→12:59)
[2020-12-15 06:10] LABS: Hematocrit 41.5 % (39.6-49.0); MPV 9.8 fL (7.6-11.3); RBC Red Blood Cell Count 4.23 M/uL (4.33-5.43)
[2020-12-15 06:22] LABS: Potassium 3.9 mmol/L (3.5-5.1); Sodium Level 141 mmol/L (136-145)
[2020-12-15 06:23] LABS: BUN Blood Urea Nitrogen 6 mg/dL (7-18); Bicarbonate 24 mmol/L (21-32); Glucose Level 90 mg/dL (74-106); Magnesium 2.3 mg/dL (1.8-2.4)
[2020-12-15] MEDS ORDERED: LIDOCAINE 1% MPF 5 ML VIAL ONE (08:45)
[2020-12-15] MEDS ORDERED: MIDAZOLAM HCL 2 MG/2 ML INJ ONE (08:45)
[2020-12-15] MEDS ORDERED: FENTANYL CITR 100 MCG/2 ML ONE (08:45)
[2020-12-15] MEDS ORDERED: propofoL 200 MG/20 ML VIAL IV ONE (08:45)
[2020-12-15] MEDS ORDERED: Ringers Lactate 1,000 ML IV ONE (08:52)
[2020-12-15] MEDS: AMLODIPINE 10 MG TAB PO SCH ×2 (09:00→10:41)
[2020-12-15] MEDS ORDERED: BUPIVACAINE 0.5% PF 10 ML VIAL ONE (09:10)
[2020-12-15] MEDS ORDERED: KETOROLAC 30 MG/ML INJ ONE (09:24)
[2020-12-15] MEDS ORDERED: CODEINE 30MG/APAP 300MG TAB PO PRN (09:48)
[2020-12-15 10:04] VITALS: O2SAT 99
[2020-12-15] MEDS: VANCOMYCIN 2 GM in NA CHLORIDE 0.9% 500 ML IVPB SCH ×2 (10:40→22:59)
--- NOTE | 2020-12-15 15:50 | OP ---
Surgeon: Librado Martinez MD Preoperative Diagnosis: Open wound of the right index finger. Postoperative Diagnosis: Open wound of the right index finger. Procedures Performed: Debridement of skin, subcutaneous tissue; bone flap closure. Anesthesia: Digital block. Description Of Procedure: After satisfactory induction of digital block, the right hand was prepped with Betadine scrub and paint. Dry sterile drapes were used on usual manner. Digital tourniquet was applied using a glove and then a scalpel was used to incise the internal matrix dorsally down to the bone which has all dissolved. A file and rongeur were used to debride the remaining portion of bone to square it up. The wound was jet lavaged, irrigated, then the palmar flap was thinned. Tournique t was released. Electrocautery was used for hemostasis. The flap was closed with 4-0 Prolene simple sutures. Dressed with Xeroform, 2 inch Laron. The patient tolerated procedure well and returned to recovery. LALO/BAKARI Voice ID: [id number] Report ID: [id number]
--- NOTE | 2020-12-15 20:16 | P.PN ---
Subjective Date of Service: 12/15/20 Chief Complaint: Nonhealing wound and swelling of right index finger. Subjective: No new changes Review of Systems 10-point ROS is otherwise unremarkable Physical Examination - Vital Signs Temperature: 98.9 F Blood Pressure: 134/66 Pulse: 62 Respirations: 16 Pulse Ox (%): 98 Assessment & Plan Physician Review Additional Text: Physical Exam General: Alert, In no apparent distress Respiratory: Clear to auscultation bilaterally Cardiovascular: No edema, Regular rate/rhythm, Normal S1 S2 Gastrointestinal: Soft and benign, Non-distended, No tenderness Musculoskeletal: Right index finger with dressing: c/d/i Neuro: AAOx3 Problem List Cellulitis of finger of right hand 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 Deep tissue wound culture: Staph aures. Sensitivities reviewed Hand surgeon-Dr. Martinez took patient to OR today for debridement and bone flap closer. Reported likely still infected bone remaining due to thickness/inflammation. Recommended continued IV antibiotics upon discharge ID consulted, will review recommendations for antibiotics Pain management as needed. Continue amlodipine for hypertension. Dispo: anticipate dc home in the next 24-48hrs pending approval for outpatient antibiotics Time Spent Managing Pts Care (In Minutes): 35
[2020-12-16 06:50] LABS: Absolute Lymphocytes (CBC) 1.6 K/uL (0.7-4.9); Basophils % 1.1 % (0-1.3); Hematocrit 41.3 % (39.6-49.0); Lymphocytes % 32.8 % (15.3-44.8); MPV 9.5 fL (7.6-11.3); RBC Red Blood Cell Count 4.24 M/uL (4.33-5.43)
[2020-12-16 07:10] LABS: BUN Blood Urea Nitrogen 5 mg/dL (7-18); Bicarbonate 25 mmol/L (21-32); Glucose Level 89 mg/dL (74-106); Potassium 3.8 mmol/L (3.5-5.1); Sodium Level 138 mmol/L (136-145)
[2020-12-16] MEDS: AMLODIPINE 10 MG TAB PO SCH (09:33)
[2020-12-16] MEDS: CODEINE 30MG/APAP 300MG TAB PO PRN ×2 (09:38→18:19)
[2020-12-16] MEDS: VANCOMYCIN 2 GM in NA CHLORIDE 0.9% 500 ML IVPB SCH ×2 (13:57→22:02)
--- NOTE | 2020-12-16 17:25 | P.PN ---
Subjective Date of Service: 12/16/20 Chief Complaint: Nonhealing wound and swelling of right index finger. Subjective: No new changes (Doing well, reports slight pain in finger, otherwise without complaints. Tolerating diet, urinating, had a bowel movement) Review of Systems 10-point ROS is otherwise unremarkable Physical Examination - Vital Signs Temperature: 98.2 F Blood Pressure: 139/67 Pulse: 62 Respirations: 16 Pulse Ox (%): 97 Assessment & Plan Physician Review Additional Text: Physical Exam General: Alert, In no apparent distress Respiratory: Clear to auscultation bilaterally Cardiovascular: No edema, Regular rate/rhythm, Normal S1 S2 Gastrointestinal: Soft and benign, Non-distended, No tenderness Musculoskeletal: Right index finger with dressing: c/d/i Neuro: AAOx3 Problem List Cellulitis of finger of right hand 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 PICC line placed. Hand surgeon-Dr. Martinez took patient to OR today for debridement and bone flap closer. Reported likely still infected bone remaining due to thickness/inflammation. Recommended continued IV antibiotics upon discharge Blood cultures: No growth to date. Deep tissue wound culture: Staph aures. Sensitivities reviewed ID consulted, agrees with 4 weeks of vancomycin 2 g b.i.d. patient will need a CBC, BMP, and vanc troughs Mondays and Pain management as needed. Continue amlodipine for hypertension. Dispo: anticipate dc home in the next 24-48hrs pending approval for outpatient antibiotics Time Spent Managing Pts Care (In Minutes): 35
[2020-12-16] MEDS ORDERED: ALTEPLASE 2 MG/VIAL IV SCH (20:00)
[2020-12-17 05:34] VITALS: TEMP 98.4
[2020-12-17 07:13] LABS: BUN Blood Urea Nitrogen 8 mg/dL (7-18); Bicarbonate 26 mmol/L (21-32); Glucose Level 116 mg/dL (74-106); Potassium 3.6 mmol/L (3.5-5.1); Sodium Level 141 mmol/L (136-145)
[2020-12-17] MEDS ORDERED: POTASSIUM 25 MEQ EFFERV TAB PO ONE (09:00)
[2020-12-17] MEDS: CODEINE 30MG/APAP 300MG TAB PO PRN (09:08)
[2020-12-17] MEDS: AMLODIPINE 10 MG TAB PO SCH (09:09)
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
[2020-12-17] MEDS: VANCOMYCIN 2 GM in NA CHLORIDE 0.9% 500 ML IVPB SCH (12:39)
[2020-12-17 15:30] VITALS: BP 140/65
== END 2020-12-17 15:30 | disposition home health service (06) | DRG 580 ==
LOC: ER 14:02 → ERHOLD 17:20 → 2ND 19:36
PROVIDERS: ADMIT Internal Medicine; ATTEND Hospitalist
PROC: 0PBT0ZZ Excision of Right Finger Phalanx, Open Approach (ICD-10-PCS; principal; 2020-12-09 09:00)
PROC: 02HV33Z Insertion of Infusion Device into Superior Vena Cava, Percutaneous Approach (ICD-10-PCS; 2020-12-10)
PROC: 0JBJ0ZZ Excision of Right Hand Subcutaneous Tissue and Fascia, Open Approach (ICD-10-PCS; 2020-12-15)
PROC: 0JQJ0ZZ Repair Right Hand Subcutaneous Tissue and Fascia, Open Approach (ICD-10-PCS; 2020-12-15)
DX: L03.113 Cellulitis of right upper limb (principal); M86.8X4 Other osteomyelitis, hand; I10 Essential (primary) hypertension; F17.200 Nicotine dependence, unspecified, uncomplicated; S62.630A Displaced fracture of distal phalanx of right index finger, initial encounter for closed fracture; B95.61 Methicillin susceptible Staphylococcus aureus infection as the cause of diseases classified elsewhere; Z88.0 Allergy status to penicillin; Z79.899 Other long term (current) drug therapy; Z20.822 Contact with and (suspected) exposure to COVID-19
CPT/HCPCS: 36415; 36569; 71045; 80048; 80202; 81003; 82565; 83735; 84100; 85025; 85027; 85610; 87040; 87070; 87075; 87077; 87186; 87205; 88304; 88305; 93005; 96365; 96366; 99285; J0360; J2250; J2704; J3010; J3370; J7030; J7040; J7120; U0003

== ENCOUNTER 2024-07-07 02:01 | Emergency (ER) | payer MEDICARE, OTHER ==
[2024-07-07] MEDS ORDERED: ONDANSETRON 4 MG/2 ML VIAL ONE (02:24)
[2024-07-07] MEDS ORDERED: LORazepam 2 MG/ML VIAL ONE (02:24)
[2024-07-07 03:13] LABS: Albumin 2.9 g/dL (3.4-5.0); Albumin/Globulin Ratio 0.4 (1.1-1.8); Anion Gap 23.2 mEq/L (5.0-15.0); Bilirubin Direct 3.6 mg/dL (0-0.2); Bilirubin Total 6.4 mg/dL (0.2-1.0); Globulin 6.5 g/dL (2.3-3.5); Potassium 3.2 mEq/L (3.5-5.1); Protein, Total 9.4 g/dL (6.4-8.2)
[2024-07-07 03:14] LABS: Troponin High Sensitivity 7770.1 pg/mL (<58.9)
[2024-07-07] MEDS ORDERED: HEPARIN/D5W 25,000 UNIT/500 ML BAG IV ONE (03:31)
[2024-07-07] MEDS ORDERED: MORPHINE 4 MG/ML SYR ONE (03:48)
[2024-07-07] MEDS ORDERED: CEFTRIAXONE 1000 MG/VIAL ONE (03:59)
[2024-07-07] MEDS ORDERED: AZITHROMYCIN 500 MG INJ IVPB ONE (04:00)
[2024-07-07] MEDS ORDERED: NA CHLORIDE 0.9% 250 ML ONE (04:00)
[2024-07-07 04:01] LABS: Absolute Lymphocytes (CBC) 0.6 K/uL (0.7-4.9); Absolute Monocytes 0.4 K/uL (0.1-1.3); Absolute Neutrophil 6.4 K/uL (1.8-8.0); Basophils % 0.1 % (0-1.3); Hemoglobin 13.8 g/dL (13.6-17.9); Lymphocytes % 7.5 % (15.3-44.8); MCH 35.9 pg (27.0-35.0); MCHC 33.6 g/dL (32.0-36.0); MCV 106.8 fL (80-100); MPV 12.1 fL (7.6-11.3); Monocytes % 5.8 % (3.3-12.3); Neutrophils % 86.6 % (41.7-73.7); Nucleated Red Blood Cells % 0.3 % (0-0); Platelets 39 thou/uL (152-406); RBC Red Blood Cell Count 3.84 M/uL (4.33-5.43)
[2024-07-07 04:02] LABS: PT Prothrombin Time 19.2 SECONDS (9.4-12.5); PTT, Activated Partial Thromb 39.2 SECONDS (24.3-36.9); Protime INR 1.74
[2024-07-07] MEDS ORDERED: NA CHLORIDE 0.9% 1,000 ML ONE ×2 (04:07→04:38)
[2024-07-07 04:33] LABS: Band Neutrophils 18 % (0-1); Blood Morphology Comment NOTED (NOT SEEN); Differential Total Cells Count 100; Lymphocytes 9 % (15-42); Macrocytosis 1+; Monocytes 6 % (0-10); Platelet Estimate DECR; Segmented Neutrophils 67 % (40-80)
[2024-07-07] MEDS ORDERED: NA CHLORIDE 0.9% 500 ML ONE (04:39)
[2024-07-07 04:54] LABS: Hepatitis B Core IgM Nonreactive (Nonreactive); Hepatitis B surface AG Interp. Nonreactive (Nonreactive); Hepatitis C Virus Ab Nonreactive (Nonreactive)
[2024-07-07 04:55] LABS: HBsAG Nonreactive Report Report
[2024-07-07] MEDS ORDERED: KCL 20 MEQ/100 mL IVPB 100 ML IV ONE (05:41)
--- NOTE | 2024-07-07 05:48 | ER ---
Nurse's Notes [facility] Name: Chance Baldwin Age: 69 yrs Sex: Male : 1955 Arrival Date: 07/07/2024 Time: 02:01 Bed 3 Private MD: Diagnosis: NSTEMI;Alcoholic hepatitis;Unspecified bacterial pneumonia;Severe sepsis without septic shock Presentation: 07/07 02:14 Chief complaint: Spouse and/or significant other states: states, "he has had N/V ss for the past few months that is getting worse. He is saying he is also having shortness of breath. He drinks daily and he fell yesterday." Skin tear noted to L forearm. Pt reports he sustained the injury during his fall yesterday. Last drink was yesterday morning. Coronavirus screen: Client denies travel out of the [place] in the last 14 days. Ebola Screen: Patient denies exposure to infectious person. Patient denies travel to an Ebola-affected area in the 21 days before illness onset. Initial Sepsis Screen: Does the patient meet any 2 criteria? No. Patient's initial sepsis screen is negative. Does the patient have a suspected source of infection? No. Patient's initial sepsis screen is negative. Risk Assessment: Do you want to hurt yourself or someone else? Patient reports no desire to harm self or others. Onset of symptoms is unknown. 02:14 Method Of Arrival: Ambulatory ss 02:14 Acuity: MIGUEL 2 ss Triage Assessment: 02:18 General: Appears uncomfortable, Behavior is anxious. EENT: Sclera/Cornea sclera noted ss to be yellow. Neuro: Level of Consciousness is awake, alert. Respiratory: Respiratory effort is even, unlabored. Derm: skin laceration noted to L arm that pt sustained yesterday after a fall. No active bleeding noted at this time. Multiple bruises noted to bilateral arms in various stages of healing. Historical: - Allergies: 02:18 PENICILLINS; ss - PMHx: 02:18 Hypertension; ETOH abuse; ss - PSHx: 02:18 partial amputation of R index finger; ss - Immunization history:: Client reports receiving the 2nd dose of the Covid vaccine. - Infectious Disease History:: Denies. - Social history:: Smoking status: Patient denies any tobacco usage or history of. Patient uses alcohol, claims drinking about a 6 pack/day. Screenin:15 [facility] ED Fall Risk Assessment (Adult) History of falling in the last 3 months, bm8 including since admission Yes- physiologic fall (2 pts) Confusion or Disorientation No (0 pts) Intoxicated or Sedated Yes (3 pts) Impaired Gait Yes (1 pt) Mobility Assist Device Used Yes (1 pt) Altered Elimination Yes (1 pt) Score/Fall Risk Level 3 or more points = High Risk Oriented to surroundings, Maintained a safe environment, Educated pt \\T\\ family on fall prevention, incl call for assistance when getting out of bed, Assessed \\T\\ reinforced patient's understanding of fall precautions, Hourly rounding (assess needs \\T\\ fall precautionary measures) done, Used ambulatory aids as needed (educated on \\T\\ assisted with), Used gait belt as appropriate Implemented a Fall Risk Plan of Care. Abuse screen: Denies threats or abuse. Nutritional screening: No deficits noted. Tuberculosis screening: No symptoms or risk factors identified. Assessment: 02:15 General: Appears distressed, uncomfortable, Behavior is cooperative, appropriate for bm8 age, anxious, Smells of alcohol. Pain: Complains of pain in abdomen Pain does not radiate. Pain currently is 6 out of 10 on a pain scale. Quality of pain is described as aching. Neuro: No deficits noted. Level of Consciousness is awake, alert, obeys commands, Oriented to person, place, time, situation, Appropriate for age. Cardiovascular: Heart tones S1 S2 present Capillary refill < 3 seconds Rhythm is sinus tachycardia. Respiratory: Airway is patent Respiratory effort is even, unlabored, Respiratory pattern is regular, symmetrical, Breath sounds are clear bilaterally. GI: Abdomen is round distended, Bowel sounds present X 4 quads. Abdomen is tender to palpation in right upper quadrant and left upper quadrant Reports upper abdominal pain, nausea, vomiting. : No signs and/or symptoms were reported regarding the genitourinary system. EENT: Eyes deep yellowish tint . Derm: Wound noted dorsal aspect of left forearm Wound is skin tear from falling yesterday already scabbed covered. Musculoskeletal: No signs and/or symptoms reported regarding the musculoskeletal system. 03:50 Reassessment: Patient appears in no apparent distress at this time. Patient and/or bm8 family updated on plan of care and expected duration. Pain level reassessed. Patient is alert, oriented x 3, equal unlabored respirations, skin warm/dry/pink. General: Appears in no apparent distress. comfortable, Behavior is calm, cooperative, appropriate for age. Pain: Complains of pain in left upper quadrant and right upper quadrant and abdomen Pain currently is 8 out of 10 on a pain scale. GI: Patient currently denies nausea, vomiting. 05:32 Reassessment: Patient appears in no apparent distress at this time. Patient and/or 8 family updated on plan of care and expected duration. Pain level reassessed. Patient is alert, oriented x 3, equal unlabored respirations, skin warm/dry/pink. Patient states feeling better. Patient states symptoms have improved. 06:48 Reassessment: Patient appears in no apparent distress at this time. No changes from 8 previously documented assessment. Patient and/or family updated on plan of care and expected duration. Pain level reassessed. Patient is alert, oriented x 3, equal unlabored respirations, skin warm/dry/pink. pt is resting with eyes closed breathing is even unlabored with symmetrical rise and fall of chest. Fluids infusing at prescribed rate. Patient denies pain at this time. 08:06 Reassessment: Attempted to call report to [facility], was asked to call back due to dd2 floor not having a nurse. 08:23 Reassessment: Report called to LUZ MARIA Barrientos. dd2 Vital Signs: 02:14 BP 162 / 72; Pulse 96; Resp 22; Temp 98.2(O); Pulse Ox 95% on R/A; Weight 77.11 kg; ss Height 5 ft. 4 in. ; Pain 0/10; 03:50 BP 94 / 77; Pulse 88; Resp 17; Temp 98.2; Pulse Ox 96% on 2 lpm NC; Pain 8/10; bm8 05:32 BP 134 / 78; Pulse 79; Resp 16; Temp 98.2; Pulse Ox 95% on R/A; Pain 0/10; bm8 06:48 BP 120 / 72; Pulse 84; Resp 22; Temp 98.2; Pulse Ox 98% on R/A; Pain 0/10; bm8 07:50 BP 127 / 76; Pulse 89; Resp 16; Pulse Ox 98% ; dd2 09:08 BP 142 / 79; Pulse 88; Resp 18; Temp 98; Pulse Ox 99% ; ko1 02:14 Body Mass Index 29.18 (77.11 kg, 162.56 cm) ss 02:14 Pain Scale: Adult ss 03:50 Pain Scale: Adult bm8 05:32 Pain Scale: Adult bm8 06:48 Pain Scale: Adult bm8 [place] Coma Score: 02:15 Eye Response: spontaneous(4). Motor Response: obeys commands(6). Verbal Response: bm8 oriented(5). Total: 15. 03:50 Eye Response: spontaneous(4). Motor Response: obeys commands(6). Verbal Response: bm8 oriented(5). Total: 15. 05:32 Eye Response: spontaneous(4). Motor Response: obeys commands(6). Verbal Response: bm8 oriented(5). Total: 15. 06:48 Eye Response: spontaneous(4). Motor Response: obeys commands(6). Verbal Response: bm8 oriented(5). Total: 15. ED Course: 02:03 Patient arrived in ED. ec2 02:04 Anibal Orellana MD is Attending Physician. ec2 02:15 Saleem Saavedra, RN is Primary Nurse. bm8 02:15 Patient has correct armband on for positive identification. Placed in gown. Bed in low bm8 position. Call light in reach. Side rails up X2. Adult w/ patient. Client placed on continuous cardiac and pulse oximetry monitoring. NIBP monitoring applied. panel monitor on. Pulse ox on. NIBP on. Door closed. Noise minimized. Warm blanket given. Pillow given. Verbal reassurance given. Head of bed elevated. 02:15 No provider procedures requiring assistance completed. Inserted saline lock: 20 gauge bm8 in right antecubital area, using aseptic technique. Blood collected. Flushed with 10 mL NS. 02:18 Triage completed. ss 02:18 Arm band placed on right wrist. ss 02:51 CT Abd/Pelvis - Without Contrast In Process Unspecified. EDMS 02:51 CXR XRAY In Process Unspecified. EDMS 03:47 US Abdomen Limited In Process Unspecified. EDMS 03:50 Lab(s) recollected, by me, sent to lab. EKG done, by ED staff, reviewed by Anibal sun MD. Inserted saline lock: 22 gauge in right hand, using aseptic technique. Blood collected. Flushed with 10 mL NS. Oxygen administration via nasal cannula \\T\\ 2L/min Response to oxygen therapy: symptoms improved. 04:03 Blood Culture Adult (2) Sent. br2 05:32 Procedure consent explained by physician, signed by spouse, spouse signed central line bm8 consent form. 05:32 Assisted provider with central line placement. Set up central line tray. Triple lumen bm8 line placed in left internal jugular. Line placed by Anibal Orellana MD Placement verified by CXR, blood return, Dressed with Tegaderm, with CHG patch Patient tolerated well. Before procedure, did Practitioner(s) obtain informed consent? Yes. Patient \\T\\ family education about procedure, CLABSI prevention and S/S of infection? Yes. Time-out/Briefing performed prior to start of procedure? Yes. Was handwashing/sanitizing done immediately prior to procedure? Yes. Was patient positioned to in a way to prevent air embolism? Yes. Was procedure site sterilized? Yes, with chlorhexidine. Was the site allowed to dry? Yes. Was local anesthetic and/or sedation utilized? Yes. During the procedure, did the Practitioner(s) maintain a sterile field? Yes. Were unused ports clamped during insertion? Yes. Was a 2nd qualified MD obtained after 3 unsuccessful insertion attempts? No. Was blood aspirated from each lumen? Yes. After the procedure, did the Practitioner(s) clean the site and apply a sterile dressing? Yes. 05:43 Chest Single View In Process Unspecified. EDMS 05:47 Dennis Barahona MD is Hospitalizing Provider. ec2 06:30 initiated transfer with Breanna \\Lisa\\ [facility]. kmf 07:04 Report given to LUZ MARIA Petit and LUZ MARIA Castaneda. bm8 07:32 pt accepted in transfer to [facility] [address] Miller admin approval bd given by Eduardo Bruno. 08:28 ems to transport pt to [facility]. bd 08:28 Provided Education on: CALL LIGHT, TRANFER, IV MEDICATION. dd2 08:57 Patient transferred, IV remains in place. dd2 Administered Medications: 02:27 Drug: Ondansetron IVP 4 mg IVP once; over 2 minutes Route: IVP; Site: right antecubital;ss 03:54 Follow up: Response: No adverse reaction bm8 02:29 Drug: Ativan IVP 2 mg IVP once Route: IVP; Site: right antecubital; ss 04:05 Follow up: Response: No adverse reaction bm8 03:53 Drug: Heparin (SD Drip) 12 units/kg/hr - ([place] [address] units, D5W IV 500 ml) IV at bm8 calculated rate Per protocol; Max initial rate 1000 units/hr {Co-Signature: [email or web address] (Vinay Parham RN).} Route: IV; Rate: calculated rate; Site: right antecubital; 03:54 Drug: morphine IVP or IV 4 mg IVP once over 4 mins Route: IVP; Infused Over: 4 mins; bm8 Site: right antecubital; 04:04 Follow up: Response: No adverse reaction bm8 04:04 Drug: Rocephin IV 1 grams IV at calculated rate once; Given slow IV push per pharmacy bm8 instructions Route: IV; Rate: calculated rate; Site: right hand; 05:32 Follow up: Response: No adverse reaction; IV Status: Completed infusion; IV Intake: 30mint2 04:04 Drug: AZITHromycin IVPB 500 mg IVPB once over 1 hrs; (mix in 250 mL NS) Route: IVPB; bm8 Infused Over: 1 hrs; Site: right hand; 05:32 Follow up: Response: No adverse reaction; IV Status: Completed infusion; IV Intake: bm8 250ml 04:10 Drug: NS 0.9% IV 1000 ml IV at 1 bolus Per protocol; 1000 mL bolus Route: IV; Rate: 1 bm8 bolus; Site: right hand; 05:31 Follow up: IV Status: Completed infusion; IV Intake: 1000ml br2 04:30 Drug: NS 0.9% IV (30 ml/kg) 30 ml/kg IV at bolus once; Sepsis Protocol minus 1 liter bm8 Route: IV; Rate: bolus; Site: right hand; 05:47 Drug: Potassium Chloride IV 20 mEq IV at calculated rate once; administer over 1-2 bm8 hours {Note: central, brown lumen.} Route: IV; Rate: calculated rate; Site: Other; 07:49 Follow up: Response: No adverse reaction; IV Status: Completed infusion; IV Intake: dd2 100ml Medication: 02:15 VIS not applicable for this client. bm8 Intake: 05:31 IV: 1000ml; Total: 1000ml. br2 05:32 IV: 250ml; Total: 1250ml. bm8 05:32 IV: 10ml; Total: 1260ml. bm8 07:49 IV: 100ml; Total: 1360ml. dd2 Outcome: 05:47 Decision to Hospitalize by Provider. ec2 06:04 Condition: stable bm8 06:23 ER care complete, transfer ordered by . ec2 08:27 Condition: stable dd2 08:27 Instructed on the need for transfer, 09:08 Transferred by ground EMS to [facility], Transfer form completed. ko1 09:08 Patient left the ED. ko1 Signatures: Dispatcher [employer] EDMS Cherie Lowry Shelby, RN RN ss Tonya Morales RN RN ko1 Anibal Orellana MD MD ec2 Alyssa [facility] Saleem Saavedra RN RN bm8 Luann Stark RN RN br2 KURTIS KNOX RN RN dd2 Vinay Parham RN [email or web address] Corrections: (The following items were deleted from the chart) 06:50 03:50 Provided Education on: need for admission. [facility] 06:50 06:04 Patient admitted, IV remains in place. 8 bm8 06:50 06:04 Admitted to ER Hold. Please see [facility] for further documentation. 8 8 06:50 06:04 Instructed on follow up and referral plans. the need for admit, Demonstrated bm8 understanding of instructions, follow-up care, medications, bm8 09:08 08:27 Transferred by ground EMS to [facility], Transfer form ko1 completed. dd2
--- NOTE | 2024-07-07 05:48 | EDPHYS ---
Physician Documentation [facility] Name: Chance Baldwin Age: 69 yrs Sex: Male : 1955 Arrival Date: 07/07/2024 Time: 02:01 Bed 3 Private MD: ED Physician Anibal Orellana HPI: 07/07 02:22 This 69 yrs old Male presents to ER via Ambulatory with complaints of ec2 Nausea/Vomiting, Shortness Of Breath. 02:22 Patient arrives today for evaluation of abdominal pain along with nausea and vomiting ec2 and shortness of breath. Patient reports several months of nausea and vomiting however worse over the past couple days. Reports history of significant alcohol use and abuse, approximately 10 beers per day. Last drink was approximately 20 hours ago. Patient reports some chest pain as well as a cough.. Historical: - Allergies: 02:18 PENICILLINS; ss - PMHx: 02:18 Hypertension; ETOH abuse; ss - PSHx: 02:18 partial amputation of R index finger; ss - Immunization history:: Client reports receiving the 2nd dose of the Covid vaccine. - Infectious Disease History:: Denies. - Social history:: Smoking status: Patient denies any tobacco usage or history of. Patient uses alcohol, claims drinking about a 6 pack/day. ROS: 02:23 Constitutional: as per hpi ec2 Exam: 02:23 Constitutional: GEN: NAD Head: atraumatic Eyes: EOMI, scleral icterus Ears: External ec2 ears are normal. CV: regular rate LUNGS: no respiratory distress ABD: Slightly distended, nontender, not guarding SKIN: no evidence of rashes MSK: no evidence of trauma. Psych: Restlessness Vital Signs: 02:14 BP 162 / 72; Pulse 96; Resp 22; Temp 98.2(O); Pulse Ox 95% on R/A; Weight 77.11 kg; ss Height 5 ft. 4 in. ; Pain 0/10; 03:50 BP 94 / 77; Pulse 88; Resp 17; Temp 98.2; Pulse Ox 96% on 2 lpm NC; Pain 8/10; bm8 05:32 BP 134 / 78; Pulse 79; Resp 16; Temp 98.2; Pulse Ox 95% on R/A; Pain 0/10; bm8 06:48 BP 120 / 72; Pulse 84; Resp 22; Temp 98.2; Pulse Ox 98% on R/A; Pain 0/10; bm8 07:50 BP 127 / 76; Pulse 89; Resp 16; Pulse Ox 98% ; dd2 09:08 BP 142 / 79; Pulse 88; Resp 18; Temp 98; Pulse Ox 99% ; ko1 02:14 Body Mass Index 29.18 (77.11 kg, 162.56 cm) ss 02:14 Pain Scale: Adult ss 03:50 Pain Scale: Adult bm8 05:32 Pain Scale: Adult bm8 06:48 Pain Scale: Adult bm8 Yari Coma Score: 02:15 Eye Response: spontaneous(4). Motor Response: obeys commands(6). Verbal Response: bm8 oriented(5). Total: 15. 03:50 Eye Response: spontaneous(4). Motor Response: obeys commands(6). Verbal Response: bm8 oriented(5). Total: 15. 05:32 Eye Response: spontaneous(4). Motor Response: obeys commands(6). Verbal Response: bm8 oriented(5). Total: 15. 06:48 Eye Response: spontaneous(4). Motor Response: obeys commands(6). Verbal Response: bm8 oriented(5). Total: 15. Procedures: 05:27 Central Line: the site was prepped with Betadine, in sterile fashion, a triple lumen ec2 catheter was inserted, in the left internal jugular vein, in 2 attempts. placement was verified, by CXR, by blood return, the site was dressed with Tegaderm, using sterile technique, the patient tolerated the procedure, well. MDM: 02:04 Patient medically screened. ec2 02:23 Data reviewed: vital signs. ED course: Patient arrives today for evaluation of nausea ec2 vomiting and shortness of breath. Examination remarkable for abdominal and cardiac findings as above. Will obtain lab work, EKG, chest x-ray, CT scan of the abdomen pelvis. Differential includes acute liver failure, ACS, electrolyte disturbances, hyperammonemia.. 02:31 ED course: EKG independently reviewed and interpreted by me, shows atrial fibrillation, ec2 rate of 111, no acute ST segment elevations, intervals are nonconcerning, PVC noted.. 03:24 ED course: Metabolic profile shows hypokalemia, anion gap at 23. Liver profile ec2 abnormalities noted, total bili elevated at 6.4, direct bili elevated at 3.6, troponin elevated at 7700. Ammonia level undetectable. Pending CT imaging and ultrasound. . 04:10 ED course: CBC reassuring. Coag profile shows INR 1.74, likely consistent with ec2 patient's poor liver function with his significant alcohol abuse history and LFT abnormalities. . 04:10 ED course: CBC reassuring. Coag profile shows INR 1.74, likely consistent with ec2 patient's poor liver function with his significant alcohol abuse history and LFT abnormalities. . 04:32 ED course: Marked lactate elevation at 12.9, patient receiving crystalloid, will ec2 complete 30 cc/kg fluid bolus . 05:28 ED course: I placed a central line in the left IJ for additional access and given the ec2 patient's critical illness.. 05:40 ED course: CT abdomen pelvis shows bibasilar pneumonia along with pleural effusion. ec2 Ultrasound shows cholelithiasis with questionable trace pericholecystic fluid no wall thickening and negative sonographic Keith sign. Patient without focal tenderness in the right upper quadrant. . 05:40 ED course: Will admit the patient for NSTEMI, sepsis, pneumonia, liver disease. ec2 Discussed case with hospitalist, pending admission.. 05:43 ED course: Postcentral line x-ray independently reviewed and interpreted by me, ec2 pertinent changes remarkable for central line in the left neck, does truncate a little more approximately than ideal however will forego manipulation.. 06:16 ED course: I discussed the case with Dr. Smith, textile machine mechanic, discussed the ec2 concern for alcoholic hepatitis as well as the nodular liver noted on CT scan concerning for possible cirrhosis, agreed this does not appear to be acute liver failure and does not necessitate transfer for specific hydraulic rockbreaker operator evaluation. Patient is a critically sick individual with multiple issues including cardiac pathology with an NSTEMI, sepsis, pneumonia as well as alcoholic hepatitis. I discussed case with hospitalist who who agreed we can manage here in the hospital with our capabilities at this time. Patient updated on the plan of care and agreeable.. 06:24 ED course: We currently have no ICU beds and ultimately patient would not be most ec2 appropriate to hold for prolonged period of time without more definitive care. Will transfer the patient. 07:09 ED course: I discussed case with , hospitalist at [facility] ec2 who agrees accept the patient for transfer. Patient updated on plan of care and agreeable. Patient appropriate for transfer.. 07/07 02:22 Order name: CBC with Diff; Complete Time: 05:30 ec2 07/07 02:22 Order name: CMP; Complete Time: 03:23 ec2 07/07 02:22 Order name: Lipase; Complete Time: 03:23 ec2 07/07 02:22 Order name: Hep Panel; Complete Time: 05:30 ec2 07/07 02:22 Order name: Bilirubin, Direct; Complete Time: 03:23 ec2 07/07 02:22 Order name: AMMONIA; Complete Time: 03:23 ec2 07/07 02:23 Order name: Troponin High Sensitivity; Complete Time: 03:23 ec2 07/07 03:26 Order name: PT-INR; Complete Time: 04:08 ec2 07/07 03:26 Order name: Ptt, Activated; Complete Time: 04:08 ec2 07/07 03:27 Order name: Lactate w/ 2H reflex if indic.; Complete Time: 04:31 ec2 07/07 03:52 Order name: Blood Culture Adult (2) ec2 07/07 04:04 Order name: Manual Differential; Complete Time: 05:30 EDMS 07/07 06:30 Order name: Ghost Lactate-NO COLLECT Timer; Complete Time: 07:02 EDMS 07/07 07:45 Order name: Lactate Sepsis 2 HR Follow-up EDMS 07/07 02:22 Order name: CT Abd/Pelvis - Without Contrast ec2 07/07 02:23 Order name: CXR XRAY ec2 07/07 03:24 Order name: US Abdomen Limited ec2 07/07 05:40 Order name: Chest Single View EDMS 07/07 07:05 Order name: EKG Electrocardiogram EDMT 07/07 02:22 Order name: IV Saline Lock; Complete Time: 02:23 ec2 07/07 02:22 Order name: Labs collected and sent; Complete Time: 02:23 ec2 07/07 02:23 Order name: EKG - Nurse/Tech; Complete Time: 02:29 ec2 Administered Medications: 02:27 Drug: Ondansetron IVP 4 mg IVP once; over 2 minutes Route: IVP; Site: right antecubital;ss 03:54 Follow up: Response: No adverse reaction bm8 02:29 Drug: Ativan IVP 2 mg IVP once Route: IVP; Site: right antecubital; ss 04:05 Follow up: Response: No adverse reaction bm8 03:53 Drug: Heparin (MT Drip) 12 units/kg/hr - ([place] [address] units, D5W IV 500 ml) IV at bm8 calculated rate Per protocol; Max initial rate 1000 units/hr {Co-Signature: [email or web address] (Vinay Parham RN).} Route: IV; Rate: calculated rate; Site: right antecubital; 03:54 Drug: morphine IVP or IV 4 mg IVP once over 4 mins Route: IVP; Infused Over: 4 mins; bm8 Site: right antecubital; 04:04 Follow up: Response: No adverse reaction bm8 04:04 Drug: Rocephin IV 1 grams IV at calculated rate once; Given slow IV push per pharmacy bm8 instructions Route: IV; Rate: calculated rate; Site: right hand; 05:32 Follow up: Response: No adverse reaction; IV Status: Completed infusion; IV Intake: [id number] 04:04 Drug: AZITHromycin IVPB 500 mg IVPB once over 1 hrs; (mix in 250 mL NS) Route: IVPB; bm8 Infused Over: 1 hrs; Site: right hand; 05:32 Follow up: Response: No adverse reaction; IV Status: Completed infusion; IV Intake: bm8 250ml 04:10 Drug: NS 0.9% IV 1000 ml IV at 1 bolus Per protocol; 1000 mL bolus Route: IV; Rate: 1 bm8 bolus; Site: right hand; 05:31 Follow up: IV Status: Completed infusion; IV Intake: 1000ml br2 04:30 Drug: NS 0.9% IV (30 ml/kg) 30 ml/kg IV at bolus once; Sepsis Protocol minus 1 liter bm8 Route: IV; Rate: bolus; Site: right hand; 05:47 Drug: Potassium Chloride IV 20 mEq IV at calculated rate once; administer over 1-2 bm8 hours {Note: central, brown lumen.} Route: IV; Rate: calculated rate; Site: Other; 07:49 Follow up: Response: No adverse reaction; IV Status: Completed infusion; IV Intake: dd2 100ml Disposition Summary: 07/07/24 06:23 Transfer Ordered Notes: Accepting Physician: transferring doc ec2 Transfer Location: [facility] ec2 Reason: Higher level of care ec2 Condition: Stable(07/07/24 06:23) ec2 Problem: new(07/07/24 06:23) ec2 Symptoms: have improved(07/07/24 06:23) ec2 Accepting Physician: transferring doc ko1 Diagnosis - NSTEMI ec2 - Alcoholic hepatitis(07/07/24 06:23) ec2 - Unspecified bacterial pneumonia(07/07/24 06:23) ec2 - Severe sepsis without septic shock(07/07/24 06:23) ec2 Forms: - Medication Reconciliation Form ec2 - SBAR form ec2 Critical care time excluding procedures: 05:41 Critical care time: Bedside Care: 30 minutes, Consultation: 5 minutes. Total time: 35 ec2 minutes Signatures: Dispatcher [employer] EDArline Higuera, LUZ MARIA RN ss Tonya Morales RN RN ko1 Anibal Orellana MD MD ec2 Saleem Saavedra, RN RN bm8 Luann Stark RN br2 KURTIS KNOX RN dd2 Vinay Parham RN jb4 Corrections: (The following items were deleted from the chart) 02:23 02:23 CBC+H.LAB.BRZ ordered. EDMS EDMS 02:23 02:23 COMPREHENSIVE METABOLIC PANEL+C.LAB.BRZ ordered. EDMS EDMS 02:23 02:23 LIPASE+C.LAB.BRZ ordered. EDMS EDMS 02:23 02:23 Urinalysis+U.LAB.BRZ ordered. EDMS EDMS 02:23 02:23 Acute Hepatitis Panel+SC.LAB.BRZ ordered. EDMS EDMS 02:23 02:23 BILIRUBIN, DIRECT+C.LAB.BRZ ordered. EDMS EDMS 02:23 02:23 AMMONIA+C.LAB.BRZ ordered. EDMS EDMS 02:23 02:23 Abdomen Pelvis Wo Con+CT.RAD.BRZ ordered. EDMS EDMS 02:24 02:24 Chest Single View+RAD.RAD.BRZ ordered. EDMS EDMS 02:24 02:22 Patient arrives today for evaluation of abdominal pain along with nausea and ec2 vomiting and shortness of breath.. ec2 02:25 02:23 Constitutional: GEN: NAD Head: atraumatic Eyes: EOMI Ears: External ears are ec2 normal. CV: regular rate LUNGS: no respiratory distress ABD: Slightly distended, nontender, not guarding SKIN: no evidence of rashes MSK: no evidence of trauma. Psych: Restlessness ec2 03:28 03:28 LACTATE+C.LAB.BRZ ordered. EDMS EDMS 06:22 05:47 Inpatient Admission ec2 ec2 06:22 05:47 Dennis Barahona ec2 ec2 06:22 05:47 Intensive Care Unit ec2 ec2 06:22 05:47 Stable ec2 ec2 06:22 05:47 new ec2 ec2 06:22 05:47 have improved ec2 ec2 06:22 05:47 Standard ec2 ec2 06:22 05:47 ec2 ec2 06:22 05:47 Severe sepsis without septic shock ec2 ec2 06:22 05:47 Unspecified bacterial pneumonia ec2 ec2 06:22 05:47 Alcoholic hepatitis ec2 ec2 06:22 05:47 Hypokalemia ec2 ec2 06:22 05:48 NSTEMI ec2 ec2 06:22 05:48 Abnormal coagulation profile ec2 ec2
[2024-07-07 09:41] VITALS: BP 142/79; TEMP 98; O2SAT 99
--- NOTE | 2024-07-07 14:26 | RAD REPORT ---
EXAM DESCRIPTION: RAD - Chest Single View - 07/07/2024 6:31 am CLINICAL HISTORY: Central line COMPARISON: XR Chest 07/07/2024. FINDINGS: SUPPORT DEVICES: Left IJ central venous catheter terminates over the left brachiocephalic vein. LUNGS/PLEURAL SPACES: Small right pleural effusion. Bilateral interstitial opacities, right more than left. No pneumothorax. HEART/MEDIASTINUM: Unremarkable. BONES/UPPER ABDOMEN/SOFT TISSUES: No acute findings. IMPRESSION: Left IJ central venous catheter terminates over the left brachiocephalic vein. Electronically signed by: Blanca Mieer MD 07/07/2024 06:11 AM CDT RP Due to temporary technical issues with the PACS/Fluency reporting system, reports are being signed by the in house radiologists without review as a courtesy to insure prompt reporting. The interpreting radiologist is fully responsible for the content of the report.
--- NOTE | 2024-07-07 14:27 | RAD REPORT ---
EXAM DESCRIPTION: RAD - Chest Single View - 07/07/2024 2:49 am CLINICAL HISTORY: Cough. COMPARISON: None. TECHNIQUE: XR CHEST 1 VIEW 07/07/2024 2:23 AM CDT FINDINGS: The heart is enlarged. There is bilateral mostly lower lung and perihilar airspace disease . There is a probable right pleural effusion. There is no pneumothorax. There are no acute osseous fi ndings. IMPRESSION: Suspect bilateral pneumonia with a right pleural effusion. Electronically signed by: Jeferson Quintana MD 07/07/2024 03:29 AM CDT RP Due to temporary technical issues with the PACS/Fluency reporting system, reports are being signed by the in house radiologists without review as a courtesy to insure prompt reporting. The interpreting radiologist is fully responsible for the content of the report.
--- NOTE | 2024-07-07 15:31 | RAD REPORT ---
EXAM DESCRIPTION: US - Abdomen Exam Limited - 07/07/2024 3:45 am CLINICAL HISTORY: Right upper quadrant/biliary tree eval COMPARISON: CT Abdomen Pelvis 07/07/2024. TECHNIQUE: US ABDOMEN LIMITED 07/07/2024 3:24 AM CDT FINDINGS: Gallbladder contains a moderate amount of sludge. There are several small gallstones withi n the gallbladder. There is no wall thickening. There is questionable trace pericholecystic fluid. Co mmon bile duct measures 4 mm. There is a reported negative sonographic Keith's sign. IMPRESSION: Cholelithiasis with questionable trace pericholecystic fluid. No wall thickening. Negati ve sonographic Keith's sign. Electronically signed by: Jeferson Quintana MD 07/07/2024 04:43 AM CDT RP Due to temporary technical issues with the PACS/Fluency reporting system, reports are being signed by the in house radiologists without review as a courtesy to insure prompt reporting. The interpreting radiologist is fully responsible for the content of the report.
--- NOTE | 2024-07-07 15:36 | RAD REPORT ---
EXAM DESCRIPTION: CT - Abdomen Pelvis Wo Contrast - 07/07/2024 6:27 am CLINICAL HISTORY: Abdominal pain, abdominal distention. COMPARISON: None. TECHNIQUE: CT ABDOMEN PELVIS WITHOUT IV CONTRAST on 07/07/2024 2:22 AM CDT This exam was performed according to our departmental dose-optimization program, which includes autom ated exposure control, adjustment of the mA and/or kV according to patient size and/or use of iterati ve reconstruction technique. FINDINGS: There is bibasilar, especially right lower lobe airspace disease. There is a large right p leural effusion. There is a small left pleural effusion. Abdomen: Liver is nodular and heterogeneous in appearance. There is no biliary dilatation. Gallbladde r contains multiple gallstones. The pancreas and spleen are normal in appearance. The adrenal glands and kidneys are unremarkable. Abdominal aorta is densely calcified without aneurysm. There is no free air. There is no retroperiton eal adenopathy. Pelvis: There is no bowel obstruction. Urinary bladder is unremarkable. There is no free fluid. Appen monserrat is normal. Skeleton: There are no acute osseous findings. No suspicious bony lesions. IMPRESSION: Bibasilar pneumonia with pleural effusions. Abnormal appearance of the liver. Consider MRI. Electronically signed by: Jeferson Quintana MD 07/07/2024 03:38 AM CDT Due to temporary technical issues with the PACS/Fluency reporting system, reports are being signed by the in house radiologists without review as a courtesy to insure prompt reporting. The interpreting radiologist is fully responsible for the content of the report.
--- NOTE | 2024-07-07 16:53 | EKG ---
Test Date: 2024-07-07 Test Time: 02:29:31 Brake Press Operator: RAMON MEASUREMENT RESULTS: Intervals: Rate: 111 AL: QRSD: 112 QT: 358 QTc: 486 [place]: P: AL: QRS: 103 T: 79 INTERPRETIVE STATEMENTS: Atrial fibrillation with rapid ventricular response with premature ventricular or aberrantly conducted complexes Lateral infarct, age undetermined Abnormal ECG No previous ECG available for comparison Electronically Signed On 07-07-24 16:52:20 CDT by Сергей Bellamy
== END 2024-07-07 09:08 | disposition short-term general hospital (02) ==
LOC: ER 02:01
DX: I21.4 Non-ST elevation (NSTEMI) myocardial infarction (principal); K70.10 Alcoholic hepatitis without ascites; R65.20 Severe sepsis without septic shock; J15.9 Unspecified bacterial pneumonia; I10 Essential (primary) hypertension
CPT/HCPCS: 93005; 87040 ×2; 85025; 36415; 82140; 85610; 83605 ×2; 85730; 82248; 84484; 83690; 80053; 80074; 74176; 71045 ×2; 76705; 99285; 36556; J3480; J2405; J7050; J7040; J7030 ×2; J0696